=== PATIENT | male | born 1945 | race Caucasian/White ===

== ENCOUNTER 2016-04-11 08:19 | Inpatient (IN) | payer OTHER ==
[2016-03-29 16:04] VITALS: BMI 33.0
[~2016-04-11] VITALS: Ht 180.3 cm; Wt 109.9 kg
[2016-04-11] VITALS (9 sets, daily range): BP systolic 112–159; BP diastolic 71–87; PULSE 63–82; TEMP 36.2–36.8; O2SAT 94–98; Ht 180.3 cm; Wt 109.9 kg
[~2016-04-11 08:19] MED LIST: ACET-749 PO; AMLO-114 PO; ASCO1CAP3 PO; ASPI81TA28 PO; ATEN-173 PO; CEFAZOLIN 2000 MG/60 ML D5W IV SCH; CITA20TA4 PO; CLR10 PO; CeleBREX 200 MG CAP PO SCH; LACTATED RINGER'S 1000ML 1,000 ML IV SCH; MULT-506 PO; NAPR1TAB9 PO; OMEG10007 PO; PREGABALIN 75 MG CAP PO SCH; PSYL0.524 PO; SIMV20TA2 PO; TAMS0.4C38 PO
[2016-04-11] MEDS ORDERED: THROMBIN 5000 UNITS KIT ONE (09:47)
[2016-04-11] MEDS ORDERED: BACITRACIN 50000 UNIT VIAL ONE (09:47)
[2016-04-11] MEDS ORDERED: FENTANYL CITRATE INJ 50 MCG/1 ML 2 ML VIAL ONE (09:47)
[2016-04-11] MEDS ORDERED: HEPARIN SOD (PORCINE) 1000 UNIT/ML 10 ML VIAL ONE (09:47)
[2016-04-11] MEDS ORDERED: THROMBIN FOR SOLN 20000 UNIT KIT ONE ×3 (09:47→11:46)
[2016-04-11] MEDS ORDERED: BUPIVACAINE/EPINEPHRINE 0.5% MPF 1:200,000 30 ML VIAL ONE (09:47)
[2016-04-11] MEDS ORDERED: MIDAZOLAM HCL 1 MG/ML 2ML VIAL ONE (09:48)
--- NOTE | 2016-04-11 09:49 | History and Physical ---
History & Physical Date Apr 11, 2016. Chief Complaint LBP and jose leg pain History of Present Illness The patient is a 71 year old male with complaints of above who had a prior L4- S1 PSF following which he did well. 6 mos ago symptoms began to reoccur and failed to respond to outpatient treatment. He denies weakness. His quality of life is severely limited. He has MRI findings of L2-4 stenosis with L1-4 DDD/ facet djd. no incontinence. He was medically cleared for surgery Past Medical/Surgical History CAD BPH depression SOB HTN hi chol Additional History Hepatic Disease: No Endocrine Disorder: No Kidney Disease: No Hypertension: Yes Heart Disease: Yes Bleeding Tendencies: No Infectious Diseases: No Allergies Coded Allergies: No Known Allergies (Unverified , 03/29/16) Home Medications Scheduled Amlodipine (Norvasc), 10 MG PO QAM Ascorbic Acid (Vitamin C), 500 MG PO QAM Aspirin (Aspirin Ec), 81 MG PO HS Atenolol (Tenormin), 25 MG PO HS Citalopram Hydrobromide (Citalopram Hydrobromide), 1 TAB PO DAILY Fish Oil ([place]-3), 1,200 MG PO BID Loratadine (Claritin), 10 MG PO HS Multivitamin (Multivitamin), 1 TAB PO QAM Naproxen (Aleve), 440 MG PO PRN Psyllium (Metamucil), 1 TAB PO QAM Simvastatin (Zocor), 20 MG PO HS Tamsulosin Hcl (Flomax), 0.4 MG PO HS Scheduled PRN Acetaminophen/Codeine (Tylenol W/Codeine #3), 1 TAB PO Q6 PRN for Pain Physical Examination Skin: warm/dry Eyes: normal inspection ENT: normal ENT inspection, pharynx normal Head: normocephalic, atraumatic Neck: supple Respiratory/Chest: lungs clear, no respiratory distress Cardiovascular: regular rate, rhythm Back: normal inspection (midline scar) Extremities: normal inspection, normal range of motion Neurologic/Psych: no motor/sensory deficits, alert, normal reflexes, oriented x 3 Diagnosis adjacent level disease lumbar spine. L2-4 stenosis and L1-4 DDD Plan of Treatment possible HWR L4-S1, L2-4 decompression, L1-4 PSF
[2016-04-11] MEDS ORDERED: OXYC-57 PO (09:59)
[2016-04-11] MEDS ORDERED: ONDANSETRON INJ 2 MG/ML 2 ML VIAL IV PRN ×3 (10:00→13:00)
[2016-04-11] MEDS ORDERED: HYDROmorphone INJ 2 MG/ML SYR/VIAL IV PRN ×2 (10:00→10:15)
[2016-04-11] MEDS ORDERED: PHENYLEPHRINE 100MCG/ML 5ML SYR IV PRN ×2 (10:00→10:15)
[2016-04-11] MEDS ORDERED: EpHEDrine SULFATE INJ 50 MG/ML AMP IV PRN ×2 (10:00→10:15)
[2016-04-11] MEDS ORDERED: ATROPINE SULFATE 0.1 MG/ML 5ML SYR IV PRN ×2 (10:00→10:15)
--- NOTE | 2016-04-11 10:00 | Discharge Instructions ---
Discharge Instructions Admission Reason for Admission: Lumbar Spinal Stenosis Discharge Discharge Diagnosis / Problem: Lumbar Stenosis Discharge Goals Goal(s): Decrease discomfort, Improve function, Increase independence Activity Recommendations Activity Limitations: as noted below Lifting Limitations: no more than 5 pounds Exercise/Sports Limitations: until after follow-up appointment May Resume Sexual Activity: after follow-up appointment . Instructions / Follow-Up Instructions / Follow-Up ACTIVITY RECOMMENDATIONS: SELF CARE INSTRUCTIONS AFTER THORACIC/LUMBAR FUSIONS 1. You may walk to your tolerance. It is good exercise for your legs and back. Expect some back and intermittent leg aches and pains. 2. You may perform "counter-top" level activities (make a sandwich, lissa with a project, etc.). 3. No bending or lifting of more than 10 pounds or back twisting of any nature (roll like a log when turning in bed). 4. You may ride in a car for 20-30 minutes at a time. No driving until after your first visit with your doctor. 5. Frequent changes of position and restricting sitting to 30 minutes at a time will help limit the amount of back spasms and stiffness you may experience. 6. You may discontinue the use of ambulatory aids (cane, crutches, etc.) once your strength and confidence allow. 7. You may pv installer tech the shower and let water strike your incision when you arrive home at least once daily. Do not take a tub bath, sit in a hot tub or go into a swimming pool until after your first recheck in the office. SPECIAL CARE INSTRUCTIONS: VERY IMPORTANT TO READ AND REVIEW A. Your surgical incision has been closed with a cosmetic suture under the skin that will dissolve in about 6 weeks. In 14 days, you can use a pair of clean scissors and cut the suture that is left outside of the skin at the ends of your incision. 1. The small skin tapes can be removed 7 days after surgery if they have not fallen off by that point. 2. You may keep the wound open to air as much as possible to promote healing after post-op day number 5 unless told otherwise by your doctor. 3. If you think the wound looks like it is becoming infected (redness or worsening drainage) and/or you are experiencing fever, chill or worsening back pain and muscle spasms, contact the office so that we may evaluate you as soon as possible. B. Complications are uncommon, but please contact us if you have any signs or symptoms of: 1. wound infection (fever higher than 102.5 degrees F, redness, separation of wound, drainage, or increasing pain from the incision) 2. blood clots in legs (pain, swelling, redness and warmth in legs) 3. urinary tract infection (fever higher than 102.5 degrees F, burning upon urination or increased frequency of urination) 4. nerve problems (inability to walk on your toes or heels, numbness, loss of bowel or bladder control) 5. any other symptoms that concern you C. Please call the office at if you have any concerns or questions about your operation or recovery. D. No smoking! Smoking drastically decreases the chance of a solid fusion. E. Do not take any anti-inflammatory medications (Indocin, Advil, Motrin, Aspirin, Naprosyn, etc.) as these may inhibit the chance of a solid fusion. Tylenol is okay to take for pain. MANAGING PAIN AFTER SPINAL SURGERY 1. Narcotic medication is intended for short-term use and will be provided for surgical pain. Surgical pain usually lasts for a period of 4-6 weeks. Narcotic medication includes Percocet, Vicodin, Darvocet, Tylenol #3 or Lortab. 2. Longer-term pain is more appropriately treated with non-narcotic medication such as Tylenol ES. 3. Muscle spasm is not appropriately treated with narcotics. Muscle relaxers such as Soma, Flexeril or Skelaxin can be used along with Tylenol ES. 4. Remember that we all live with some "aches and pains". This is not unusual or uncommon after an injury or as we get older. a. Back pain is expected and may include muscle spasms for 4 to 6 weeks after surgery. The pain should gradually improve. If the pain worsens for no apparent reason, please contact the office. b. Intermittent leg pain may also be experienced and should not be concerned about unless it worsens for no apparent reason. If so, please contact the office. 5. We will provide appropriate medication within the normal guidelines of their prescribed use. We will also be very cautious and aware of potential abuse and extended duration of patients' medication needs. a. Pain medications are for your comfort and to assist with sleep and rest so that the tissue can heal. They are not provided in order to return to normal activity and should not be used through the day. To do so or worsening pain at night can result from ongoing tissue damage and development of tolerance to the prescribed medicine. 6. Please allow 2-3 days to process refills. Prescriptions will not be mailed but must be picked up at the office. FOLLOW UP VISIT: Keep your scheduled follow-up appointment. Any questions, please call the office at . Current Hospital Diet Patient's current hospital diet: Discharge Diet Recommended Diet: Regular Diet Pending Studies Studies pending at discharge: no Medical Emergencies . Who to Call and When: Medical Emergencies: If at any time you feel your situation is an emergency, please call 911 immediately. . Non-Emergent Contact Non-Emergency issues call your: Surgeon Call Non-Emergent contact if: temperature is above 101, your pain is not controlled, your pain is worsening, wound has increased drainage, wound has increased redness, wound has increased pain, you have any medication questions . "Provider Documentation" section prepared by Azam Hernández. VTE Core Measure Inpt VTE Proph given/why not?: [facility] Monitoring Program Search Results: patient reviewed within database, no issues identified
[2016-04-11] MEDS ORDERED: NEOSTIGMINE METHYLSULFATE 1 MG/ML 10ML VIAL ONE (11:00)
[2016-04-11] MEDS ORDERED: GLYCOPYRROLATE INJ 0.2 MG/ML VIAL ONE ×2 (11:00→13:06)
[2016-04-11] MEDS ORDERED: DEXAMETHASONE SOD INJ 4 MG/ML VIAL ONE ×2 (11:00→13:06)
[2016-04-11] MEDS ORDERED: LIDOCAINE HCL 2% 2 ML VIAL (20MG/ML) ONE (11:00)
[2016-04-11] MEDS ORDERED: ONDANSETRON INJ 2 MG/ML 2 ML VIAL ONE ×2 (11:00→13:06)
[2016-04-11] MEDS ORDERED: PROPOFOL IV EMULSION 10 MG/ML 20 ML VIAL IV ONE (11:00)
[2016-04-11] MEDS ORDERED: ROCURONIUM BROMIDE 10 MG/ML 5 ML VIAL ONE ×2 (11:00→13:06)
[2016-04-11] MEDS ORDERED: HYDROmorphone INJ 2 MG/ML SYR/VIAL ONE (11:54)
[2016-04-11] MEDS ORDERED: EpHEDrine SULFATE 50MG/5ML SYR ONE (12:22)
[2016-04-11] MEDS ORDERED: PHENYLEPHRINE HCL INJ 10 MG/ML VIAL ONE (12:27)
[2016-04-11] MEDS ORDERED: FLOSEAL HEMOSTATIC MATRIX 10ML TOP ONE (12:36)
--- NOTE | 2016-04-11 12:50 | [facility] Post Operative Brief Note ---
Immediate Operative Summary Operative Date Apr 11, 2016. Pre-Operative Diagnosis Adjacent Level Disease Lumbar Spine. L2-4 stenosis and L1-4 Degenerative Disc Disease Post-Operative Diagnosis Same as preop Procedure(s) Performed L1-L4 Decompression and Instrumented Fusion; L4-S1 Hardware Removal; Arteriocyte;with Allograft and Autograft Surgeon Dr. Silverman Building Performance Consultant Surgeon(s) Alton Hernández PA-C Estimated Blood Loss 475 ml Findings dict Specimens A. Explanted Hardware
[2016-04-11] MEDS ORDERED: SODIUM CHLORIDE 0.9% 1000ML 1,000 ML IV SCH (12:51)
[2016-04-11] MEDS: SODIUM CHLORIDE 0.9% 1000ML 1,000 ML IV SCH (12:51)
[2016-04-11] MEDS ORDERED: SOD PHOSPHATE/SOD BIPHOSPHATE ENEMA 132 ML BTL PR PRN (13:00)
[2016-04-11] MEDS ORDERED: PROMETHAZINE HCL INJ 12.5 MG in SODIUM CHLORIDE 0.9% 50ML 50 ML IV PRN (13:00)
[2016-04-11] MEDS ORDERED: ACETAMINOPHEN IV 100 ML IV PRN (13:00)
[2016-04-11] MEDS ORDERED: BISACODYL 10 MG SUPP PR PRN (13:00)
[2016-04-11] MEDS ORDERED: NALOXONE HCL 0.4 MG/1 ML VIAL/CARP IV PRN ×2 (13:00)
[2016-04-11] MEDS ORDERED: ALUMINUM/MAGNESIUM SUSP 30 ML UDC PO PRN (13:00)
[2016-04-11] MEDS ORDERED: MAGNESIUM HYDROXIDE SUSP 30 ML UDC PO PRN (13:00)
[2016-04-11] MEDS ORDERED: LORAZEPAM 0.5 MG TAB PO PRN (13:00)
[2016-04-11] MEDS ORDERED: METOCLOPRAMIDE HCL INJ 5 MG/ML 2 ML VIAL IV PRN (13:00)
[2016-04-11] MEDS ORDERED: LORAZEPAM INJ 0.5 MG in SYRINGE 0.75 ML IV PRN (13:00)
[2016-04-11] MEDS ORDERED: hydrOXYzine HCL 25 MG TAB PO PRN (13:00)
[2016-04-11] MEDS ORDERED: ACETAMINOPHEN 500 MG TAB PO PRN (13:00)
[2016-04-11] MEDS ORDERED: FAMOTIDINE 20 MG TAB PO PRN (13:00)
[2016-04-11] MEDS ORDERED: HYDROmorphone HCL 0.5MG/ML 50 ML CASSETTE ONE (13:08)
--- NOTE | 2016-04-11 13:51 | Anesthesiology Progress Note ---
Anesthesia Post Op Note Date & Time Apr 11, 2016 at 13:51 Vital Signs Pain Intensity: 2 Vital Signs Past 12 Hours Date Time Temp Pulse Resp B/P Pulse Ox O2 Delivery O2 Flow Rate FiO2 04/11/16 13:40 82 14 131/73 95 Nasal Cannula 4 04/11/16 13:30 75 12 108/83 95 Mask 10 04/11/16 13:20 88 16 124/78 96 Mask 10 04/11/16 13:10 77 13 137/73 99 Mask 10 04/11/16 13:02 36.3 97 11 147/94 98 Mask 10 04/11/16 09:25 36.8 63 18 159/87 98 Room Air Notes Mental Status: alert / awake / arousable, participated in evaluation Pt Amnestic to Procedure: Yes Nausea / Vomiting: adequately controlled Pain: adequately controlled Airway Patency, RR, SpO2: stable & adequate BP & HR: stable & adequate Hydration State: stable & adequate Anesthetic Complications: no major complications apparent
--- NOTE | 2016-04-11 13:53 | DIAGNOSTIC IMAGING REPORT ---
INTRAOPERATIVE FLUOROSCOPIC IMAGES OF THE LUMBAR SPINE CLINICAL HISTORY: L1-L4 decompression and fusion. Hardware removal. COMPARISON STUDY: No previous studies for comparison. Fluoroscopy time: 10 seconds. FINDINGS: Exact localization is difficult given partial visualization of the lumbar spine. 3 fluoroscopic images demonstrate a previous L4-L5 discectomy with interbody spacer placement. There is a posterior decompression. Note is made of bilateral pedicle screws likely at the L1, L2, L3 and L4 levels. IMPRESSION: Findings consistent with a posterior decompression and L1-L4 bilateral pedicle screw fusion Electronically signed by: Julian Mendez M.D. 04/11/2016 1:51 PM Dictated Date/Time: 04/11/2016 1:49 PM
--- NOTE | 2016-04-11 14:09 | OPERATIVE REPORT ---
DATE OF OPERATION: 04/11/2016 PREOPERATIVE DIAGNOSES: 1. L2-L3 and L3-L4 spinal stenosis. 2. L1-2, L2-3, and L3-4 facet arthrosis and disc degeneration. POSTOPERATIVE DIAGNOSIS: Same plus previous instrument infusion L4-S1. PROCEDURES: 1. L2 and L3 laminectomies with bilateral medial facetectomies. 2. Segmental pedicle screw instrumentation -- bilateral L1-L4 with K2M [place] pedicle screws. 3. Posterior lateral fusion L1-L4 -- bilateral with Infuse BMP on a collagen sponge, tricalcium phosphate, local bone, bone putty, bone marrow aspirate, and local bone. 4. Right iliac crest bone marrow aspiration stem cell concentration and application of bone graft. 5. Hardware removal, bilateral L4-S1 with removal of Globus screws and exploration of fusion mass, L4 to S1 -- bilateral. SURGEON: Dr. Silverman. ASBESTOS TEXTILE SUPERVISOR: Azam Hernández PA-C. Please note he participated in all portions of the procedure and was critical for performance of the procedure, participated in positioning, prepping, draping, retraction and wound closure. ANESTHESIA: General endotracheal anesthesia. COMPLICATIONS: None. ESTIMATED BLOOD LOSS: 500 mL. OPERATION AND FINDINGS: PROCEDURE: After identification of patient and operative level, he was brought to the OR where he underwent induction of general anesthesia. He was then positioned prone on Jered OR table with all bony prominences well padded. Care was taken to avoid pressure on the periorbital area. Lumbosacral area was sterilely prepped and draped in usual fashion. Antibiotics were administered. Time-out was performed. Level was confirmed. Skin incision made from spinous process of T12 to the sacrum. Posterior exposure was accomplished. Gelpi retractors were placed and previous hardware was identified. Levels were confirmed and fusion mass was explored. There was exuberant fusion around the screws from L4-S1 bilaterally. I then did decompression in the midline with removal of lamina and spinous process of L2 and L3 and removal of ligamentum flavum at L2-L3 and L3-L4. I removed the degenerated facets with osteotome at L2-L3 and L3-L4. I then completed decompression with Kerrisons. I palpated the nerve roots from L2-L4 were decompressed bilaterally and then placed pedicle screws bilaterally from L1-L4 using K2M [place] pedicle screws. Screws were placed bilaterally and checked with fluoroscopy. Please note I did remove the hardware from L4-S1 bilaterally prior to reintroduction of screws. The fusion mass showed a solid fusion after the rods and screw removal from L4 to the sacrum. I then irrigated with bacitracin solution, lowered the Eitan frame and applied rods and endcaps from L1 to L4 bilaterally with final tightening. Crosslink was placed and final tightened. The bone marrow aspirate was taken from the right iliac crest via separate stab incision with a [id number] needle, concentrated with the Arteriocyte system and applied to bone graft then mixed all the bone graft including the morcellized local bone, packed in the lateral gutters from L1-L4 after decortication of the transverse process and facets with a high speed bur bilaterally from L1-L4. I then confirmed hemostasis, obtained final x-rays and closed in layered fashion over VERONA drain. All sponge and needle counts were correct at the end of the case. I attest to the content of the Intraoperative Record and any orders documented therein. Any exceptio ns are noted below.
[2016-04-11] MEDS: HYDROmorphone HCL 0.5MG/ML 50 ML CASSETTE IV PRN ×2 (14:23→19:04)
[2016-04-11] MEDS: DEXAMETHASONE INJ 6 MG in SYRINGE 0 ML IV SCH ×2 (16:39→23:15)
[2016-04-11] MEDS: CEFAZOLIN IV 2,000 MG in DEXTROSE 5% 50ML 50 ML IV SCH (18:01)
[2016-04-11] MEDS: DOCUSATE SODIUM/SENNA 50/8.6MG TAB PO SCH (21:06)
[2016-04-11] MEDS: TAMSULOSIN HCL 0.4 MG CAP PO SCH (21:06)
[2016-04-11] MEDS: LORATADINE 10 MG TAB PO SCH (21:06)
[2016-04-11] MEDS: SIMVASTATIN 20 MG TAB PO SCH (21:06)
[2016-04-11] MEDS: ASPIRIN 81 MG ECTAB PO SCH (21:06)
[2016-04-12] MEDS: CEFAZOLIN IV 2,000 MG in DEXTROSE 5% 50ML 50 ML IV SCH (01:38)
[2016-04-12] MEDS: SODIUM CHLORIDE 0.9% 1000ML 1,000 ML IV SCH (01:38)
[2016-04-12 03:24] VITALS: BP 135/75; PULSE 73; TEMP 36.4; O2SAT 95
[2016-04-12] MEDS ORDERED: DC PCA SCH (06:00)
[2016-04-12 06:03] LABS: COMPLETE YES; HEMATOCRIT 32.9 % (42-52); IG% 0.3 %; LYMPH % 9.3 %; LYMPH ABS # 1.29 K/uL (1.2-3.4); MEAN CELL VOLUME 85.9 fL (80-100); MEAN CORPUSCULAR HEMOGLOBIN 30.8 pg (25-34); MEAN CORPUSCULAR HGB CONC 35.9 g/dl (32-36); MEAN PLATELET VOLUME 10.2 fL (7.4-10.4); MONO % 4.2 %; NEUT % 86.2 %; PLATELET COUNT 262 K/uL (130-400); RED BLOOD COUNT 3.83 M/uL (4.7-6.1); WHITE BLOOD COUNT 13.91 K/uL (4.8-10.8)
[2016-04-12] MEDS ORDERED: NURSING DECISION MEDICATION ORDER SCH (06:15)
[2016-04-12 06:38] LABS: BUN/CREATININE RATIO 20.7 (10-20); CALCIUM 8.6 mg/dl (8.5-10.1); CREATININE 1.1 mg/dl (0.60-1.40); POTASSIUM 3.3 mmol/L (3.5-5.1)
--- NOTE | 2016-04-12 07:46 | Anesthesiology Progress Note ---
Anesthesia Post Op Note Date & Time Apr 12, 2016 at 07:46 Vital Signs Vital Signs Past 12 Hours Date Time Temp Pulse Resp B/P Pulse Ox O2 Delivery O2 Flow Rate FiO2 04/12/16 03:24 36.4 73 18 135/75 95 Nasal Cannula 2.0 04/11/16 23:40 36.4 77 20 123/77 95 Nasal Cannula 2.0 04/11/16 20:30 78 118/72 04/11/16 20:05 36.2 78 16 126/81 94 Nasal Cannula 4.0 Notes Mental Status: alert / awake / arousable, participated in evaluation Pt Amnestic to Procedure: Yes Nausea / Vomiting: adequately controlled Pain: adequately controlled Airway Patency, RR, SpO2: stable & adequate BP & HR: stable & adequate Hydration State: stable & adequate Anesthetic Complications: no major complications apparent
[2016-04-12 07:54] VITALS: BP 134/76; PULSE 68; TEMP 36.8; O2SAT 95
[2016-04-12] MEDS: AMLODIPINE BESYLATE 5 MG TAB PO SCH (08:57)
[2016-04-12] MEDS: CITALOPRAM 20 MG TAB PO SCH (08:57)
[2016-04-12] MEDS: DEXAMETHASONE INJ 6 MG in SYRINGE 0 ML IV SCH (08:58)
[2016-04-12] MEDS: OXYCODONE HCL IR 5 MG TAB (IMMEDIATE RELEASE) PO PRN ×3 (09:00→20:19)
--- NOTE | 2016-04-12 09:22 | Orthopedic Progress Note ---
Orthopedic Progress Note Date of Service Apr 12, 2016. Subjective Post OP Day: 1 Reports: feeling well, pain controlled w PO medications, Denies: SOB, calf pain , chest pain, complaints, light headedness, nausea / vomiting, using FUEL BUYER Objective calves soft nontender, N/V intact, dressing C/D/I, A&O x3, hemovac drainage Date Time Temp Pulse Resp B/P Pulse Ox O2 Delivery O2 Flow Rate FiO2 04/12/16 07:54 36.8 68 16 134/76 95 Room Air 04/12/16 03:24 36.4 73 18 135/75 95 Nasal Cannula 2.0 04/11/16 23:40 36.4 77 20 123/77 95 Nasal Cannula 2.0 04/11/16 20:30 78 118/72 04/11/16 20:05 36.2 78 16 126/81 94 Nasal Cannula 4.0 04/11/16 19:15 Nasal Cannula 4.0 04/11/16 17:40 36.5 82 17 123/75 95 Nasal Cannula 04/11/16 16:23 36.3 78 17 115/75 94 Nasal Cannula 4.0 04/11/16 15:30 77 16 113/73 97 Nasal Cannula 4.0 04/11/16 14:52 36.4 74 16 112/71 97 4.0 04/11/16 14:25 Nasal Cannula 4.0 04/11/16 14:25 Nasal Cannula 4.0 04/11/16 14:25 36.6 77 14 119/74 96 Nasal Cannula 4.0 04/11/16 14:10 73 14 115/67 92 Nasal Cannula 4 04/11/16 14:00 75 12 116/67 93 Nasal Cannula 4 04/11/16 13:50 36.6 84 14 137/84 97 Nasal Cannula 4 04/11/16 13:40 82 14 131/73 95 Nasal Cannula 4 04/11/16 13:30 75 12 108/83 95 Mask 10 04/11/16 13:20 88 16 124/78 96 Mask 10 04/11/16 13:10 77 13 137/73 99 Mask 10 04/11/16 13:02 36.3 97 11 147/94 98 Mask 10 04/11/16 09:25 36.8 63 18 159/87 98 Room Air Laboratory Results 24 Hours: Test 04/12/16 05:39 White Blood Count 13.91 K/uL Red Blood Count 3.83 M/uL Hemoglobin 11.8 g/dL Hematocrit 32.9 % Mean Corpuscular Volume 85.9 fL Mean Corpuscular Hemoglobin 30.8 pg Mean Corpuscular Hemoglobin Concent 35.9 g/dl Platelet Count 262 K/uL Mean Platelet Volume 10.2 fL Neutrophils (%) (Auto) 86.2 % Lymphocytes (%) (Auto) 9.3 % Monocytes (%) (Auto) 4.2 % Eosinophils (%) (Auto) 0.0 % Basophils (%) (Auto) 0.0 % Neutrophils # (Auto) 12.00 K/uL Lymphocytes # (Auto) 1.29 K/uL Monocytes # (Auto) 0.58 K/uL Eosinophils # (Auto) 0.00 K/uL Basophils # (Auto) 0.00 K/uL Assessment & Plan Assessment: preop pain resolved, PT/scds, d/c 1-2 days Discharge Planning Discharge Planning: home Pain Management: Oxy IR DVT Prophylaxis: SCDs
[2016-04-12 09:30] VITALS: BP 156/87; PULSE 97; O2SAT 96
[2016-04-12 11:47] VITALS: BP 154/85; PULSE 77; TEMP 37; O2SAT 95
[2016-04-12 14:54] VITALS: BP 136/73; PULSE 76; TEMP 37.2; O2SAT 92
[2016-04-12] MEDS: LORATADINE 10 MG TAB PO SCH (21:15)
[2016-04-12] MEDS: ASPIRIN 81 MG ECTAB PO SCH (21:15)
[2016-04-12] MEDS: TAMSULOSIN HCL 0.4 MG CAP PO SCH (21:15)
[2016-04-12] MEDS: SIMVASTATIN 20 MG TAB PO SCH (21:15)
[2016-04-12] MEDS: DOCUSATE SODIUM/SENNA 50/8.6MG TAB PO SCH (21:16)
[2016-04-12] MEDS: HYDROmorphone INJ 0.5 MG/0.5 ML SYR IV PRN (23:33)
[2016-04-13] MEDS: OXYCODONE HCL IR 5 MG TAB (IMMEDIATE RELEASE) PO PRN ×6 (01:31→21:41)
[2016-04-13] MEDS: POLYETHYLENE (MIRALAX) 17 GM PACK PO SCH ×4 (05:22→23:37)
[2016-04-13 07:14] VITALS: BP 119/70; PULSE 60; TEMP 36.7; O2SAT 97
[2016-04-13] MEDS: AMLODIPINE BESYLATE 5 MG TAB PO SCH (09:31)
[2016-04-13] MEDS: CITALOPRAM 20 MG TAB PO SCH (09:31)
[2016-04-13 11:09] VITALS: BP 135/77; PULSE 61; TEMP 36.8; O2SAT 95
--- NOTE | 2016-04-13 14:07 | Orthopedic Progress Note ---
Orthopedic Progress Note Date of Service Apr 13, 2016. Subjective Post OP Day: 2 Reports: feeling well, pain controlled w PO medications, Denies: SOB, calf pain , chest pain, complaints, light headedness, nausea / vomiting, using COIL WRAPPER Objective calves soft nontender, N/V intact, dressing C/D/I, A&O x3, hemovac drainage Date Time Temp Pulse Resp B/P Pulse Ox O2 Delivery O2 Flow Rate FiO2 04/13/16 11:09 36.8 61 16 135/77 95 Room Air 04/13/16 07:45 Room Air 04/13/16 07:15 Room Air 04/13/16 07:14 36.7 60 20 119/70 97 Room Air 04/12/16 23:30 Room Air 04/12/16 15:55 Room Air 04/12/16 14:54 37.2 76 18 136/73 92 Room Air Assessment & Plan Assessment: preop pain resolved, PT/scds, d/c 1-2 days Discharge Planning Discharge Planning: home Pain Management: Oxy IR DVT Prophylaxis: SCDs
[2016-04-13 14:57] VITALS: BP 110/62; PULSE 61; TEMP 36.8; O2SAT 95
[2016-04-13] MEDS: HYDROmorphone INJ 0.5 MG/0.5 ML SYR IV PRN (20:01)
[2016-04-13] MEDS: SIMVASTATIN 20 MG TAB PO SCH (21:41)
[2016-04-13] MEDS: LORATADINE 10 MG TAB PO SCH (21:41)
[2016-04-13] MEDS: TAMSULOSIN HCL 0.4 MG CAP PO SCH (21:41)
[2016-04-13] MEDS: DOCUSATE SODIUM/SENNA 50/8.6MG TAB PO SCH (21:42)
[2016-04-13] MEDS: ASPIRIN 81 MG ECTAB PO SCH (21:42)
[2016-04-13 23:14] VITALS: BP 130/73; PULSE 59; TEMP 36.9; O2SAT 90
[2016-04-14] MEDS: OXYCODONE HCL IR 5 MG TAB (IMMEDIATE RELEASE) PO PRN ×3 (01:02→09:30)
[2016-04-14] MEDS: POLYETHYLENE (MIRALAX) 17 GM PACK PO SCH (05:12)
[2016-04-14 07:08] VITALS: BP 137/72; PULSE 61; TEMP 36.7; O2SAT 93
[2016-04-14 07:38] VITALS: BP 137/72; PULSE 61; TEMP 36.7; O2SAT 93
[2016-04-14] MEDS: CITALOPRAM 20 MG TAB PO SCH (08:34)
[2016-04-14] MEDS: AMLODIPINE BESYLATE 5 MG TAB PO SCH (08:35)
--- NOTE | 2016-04-24 12:05 | DISCHARGE SUMMARY ---
PRINCIPAL PREOPERATIVE DIAGNOSIS: Included L2-L3, L3-L4 spinal stenosis, L1-L2, L2-L3 and L3-L4 facet arthrosis and disk degeneration. POSTOPERATIVE DIAGNOSES: Remains the same plus prior instrumentation of L4-S1. PROCEDURE: L2 and L3 laminectomies with bilateral medial facetectomies, Segmental pedicle screw instrumentation L1-L4, posterolateral fusion L1-L4, right iliac crest bone marrow aspiration, hardware removal L4-S1 with exploration of fusion mass. SURGEON: Dr. Titus Silverman. FOSTER PARENT: Azam Hernández PA-C. HISTORY OF PRESENT ILLNESS: Please refer to EMR. HOSPITAL COURSE: On 04/11/2016 Mr. Hartman was admitted to [facility] with the above diagnosis. He was taken to preoperative holding where he was evaluated identified and cleared for surgical management. He was transported to the operating room, introduced with general endotracheal anesthesia. Sterile conditions were set and he successfully underwent the procedure without complication or issue. He was awakened in stable and satisfactory condition and transported to postoperative recovery. Here, vital signs and pain were monitored and properly managed. The patient remained medically stable with no issues. He was taken to the orthopedic floor for continued postoperative care. Throughout his stay, his vital signs, labs and pain were monitored and managed through physician direction effectively with no complications. He participated in physical therapy with noted progress. VERONA drain remained intact and functioning with diminished output through each passing day. DVT and GI prophylactic measures were taken. There were no iatrogenic or postoperative complications noted. On the morning of 04/14/2016, after provider evaluation, he was indicated for return home. On this date, he was discharged from [facility]. DISPOSITION: Home. DISPOSITION CONDITION: Stable. NOTED COMPLICATIONS OR ISSUES: Zero. DISCHARGE INSTRUCTIONS: Please refer to EMR.
== END 2016-04-14 11:30 | disposition home or self-care (01) | DRG 460 ==
LOC: ENRESERVTM → ENRESERVDT → C.ACU 08:19 → C.3E 12:53
PROVIDERS: ADMIT Orthopaedic Surgery Orthopaedic Surgery of the Spine; ATTEND Orthopaedic Surgery Orthopaedic Surgery of the Spine
PROC: 0SP304Z Removal of Internal Fixation Device from Lumbosacral Joint, Open Approach (ICD-10-PCS; principal; 2016-04-11 11:00)
PROC: 0SP004Z Removal of Internal Fixation Device from Lumbar Vertebral Joint, Open Approach (ICD-10-PCS; principal; 2016-04-11 11:00)
PROC: 07DR3ZZ Extraction of Iliac Bone Marrow, Percutaneous Approach (ICD-10-PCS; principal; 2016-04-11 11:00)
PROC: 0SG1071 Fusion of 2 or more Lumbar Vertebral Joints with Autologous Tissue Substitute, Posterior Approach, Posterior Column, Open Approach (ICD-10-PCS; principal; 2016-04-11 11:00)
DX: M48.06 Spinal stenosis, lumbar region (principal); M51.36 Other intervertebral disc degeneration, lumbar region; I10 Essential (primary) hypertension; I25.10 Atherosclerotic heart disease of native coronary artery without angina pectoris; E78.00 Pure hypercholesterolemia, unspecified; N40.0 Benign prostatic hyperplasia without lower urinary tract symptoms; F32.9 Major depressive disorder, single episode, unspecified; Z98.1 Arthrodesis status; Z79.82 Long term (current) use of aspirin; Z79.899 Other long term (current) drug therapy